=== PATIENT | female | born 1995 | race Caucasian/White ===

== ENCOUNTER 2020-01-08 20:14 | Emergency (ER) | payer SELFPAY ==
[2020-01-08] MEDS ORDERED: Ondansetron 4 MG Tab.DIS PO ONE (20:56)
--- NOTE | 2020-01-08 21:45 | EDM.PDOC ---
ED HPI GENERAL MEDICAL PROBLEM - General Chief Complaint: Abdominal Pain Stated Complaint: 7 WKS /ABDOMINAL PAIN Time Seen by Provider: 01/08/20 20:46 Source of Information: Reports: Patient History Limitations: Reports: No Limitations - History of Present Illness INITIAL COMMENTS - FREE TEXT/NARRATIVE: Patient is a 24-year-old female who presents to the emergency department with complaints of upper abdominal/right upper quadrant abdominal pain. Symptoms started approximately 2 hours prior to coming to the ER. She states they were getting ready to eat when the pain developed. She went to lie down, however when she stood up the pain intensified and she vomited x1. The pain waxes and wanes and had improved at the time of exam. She does feel slightly nauseous however. Of note, patient is 7 weeks , G2, P0 with a previous miscarriage. She denies any pelvic cramping or vaginal bleeding. Upper Abdomen Pain Score (Numeric/FACES): 8 - Related Data Allergies Allergy/AdvReac Type Severity Reaction Status Date / Time aspirin AdvReac Severe Vomiting Verified 01/08/20 20:25 Home Meds: Home Meds Pnv No.95/Ferrous Fum/Folic AC [ Caplet] 1 each PO DAILY 01/08/20 [History] Past Medical History HEENT History: Reports: None Cardiovascular History: Reports: None Respiratory History: Reports: None Gastrointestinal History: Reports: None Genitourinary History: Reports: None SPOT SPRAYER History: Reports: , Spontaneous Musculoskeletal History: Reports: None Neurological History: Reports: None Psychiatric History: Reports: None Endocrine/Metabolic History: Reports: None Hematologic History: Reports: None Immunologic History: Reports: None Oncologic (Cancer) History: Reports: None Dermatologic History: Reports: None - Infectious Disease History Infectious Disease History: Reports: None Social & Family History - Tobacco Use Smoking Status *Q: Never Smoker - Caffeine Use Caffeine Use: Reports: Soda - Recreational Drug Use Recreational Drug Use: No ED ROS GENERAL - Review of Systems Review Of Systems: See Below Constitutional: Reports: No Symptoms. Denies: Fever, Chills HEENT: Reports: No Symptoms Respiratory: Reports: No Symptoms Cardiovascular: Reports: No Symptoms Endocrine: Reports: No Symptoms GI/Abdominal: Reports: Abdominal Pain (RUQ), Nausea, Vomiting. Denies: Diarrhea : Reports: No Symptoms Musculoskeletal: Reports: No Symptoms Skin: Reports: No Symptoms Neurological: Reports: No Symptoms Psychiatric: Reports: No Symptoms Hematologic/Lymphatic: Reports: No Symptoms Immunologic: Reports: No Symptoms ED EXAM, GI/ABD - Physical Exam Exam: See Below Exam Limited By: No Limitations General Appearance: Alert, WD/WN, No Apparent Distress Respiratory/Chest: No Respiratory Distress, Lungs Clear, Normal Breath Sounds, No Accessory Muscle Use, Chest Non-Tender Cardiovascular: Normal Peripheral Pulses, Regular Rate, Rhythm, No Edema, No Gallop, No JVD, No Murmur, No Rub GI/Abdominal Exam: Normal Bowel Sounds, Soft, No Organomegaly, No Distention, No Abnormal Bruit, No Mass, Pelvis Stable, Tender (Right upper quadrant tenderness, positive Marrufo sign.) Neurological: Alert, Oriented, CN II-XII Intact, Normal Cognition, Normal Gait, Normal Reflexes, No Motor/Sensory Deficits Psychiatric: Normal Affect, Normal Mood Skin Exam: Warm, Dry, Intact, Normal Color, No Rash Course - Vital Signs Last Recorded V/S: Last Vital Signs Temp 97.6 F 01/08/20 20:21 Pulse 91 01/08/20 20:21 Resp 16 01/08/20 20:21 BP 133/92 H 01/08/20 20:21 Pulse Ox 99 01/08/20 20:21 - Orders/Labs/Meds Labs: Laboratory Tests 01/08/20 01/08/20 01/08/20 Range/Units 20:58 20:58 21:10 WBC 9.31 (3.98-10.04) K/mm3 RBC 4.34 (3.98-5.22) M/mm3 Hgb 12.9 (11.2-15.7) gm/dl Hct 38.5 (34.1-44.9) % MCV 88.7 (79.4-94.8) fl MCH 29.7 (25.6-32.2) pg MCHC 33.5 (32.2-35.5) g/dl RDW Std Deviation 41.1 (36.4-46.3) fL Plt Count 191 (182-369) K/mm3 MPV 9.8 (9.4-12.3) fl Neut % (Auto) 73.0 H (34.0-71.1) % Lymph % (Auto) 16.3 L (19.3-51.7) % Camp % (Auto) 8.8 (4.7-12.5) % Eos % (Auto) 1.6 (0.7-5.8) Baso % (Auto) 0.2 (0.1-1.2) % Neut # (Auto) 6.79 H (1.56-6.13) K/mm3 Lymph # (Auto) 1.52 (1.18-3.74) K/mm3 Camp # (Auto) 0.82 H (0.24-0.36) K/mm3 Eos # (Auto) 0.15 (0.04-0.36) K/mm3 Baso # (Auto) 0.02 (0.01-0.08) K/mm3 Sodium 136 (136-145) mEq/L Potassium 3.7 (3.5-5.1) mEq/L Chloride 102 (98-107) mEq/L Carbon Dioxide 24 (21-32) mEq/L Anion Gap 13.7 (5-15) BUN 10 (7-18) mg/dL Creatinine 0.7 (0.55-1.02) mg/dL Est Cr Clr Drug Dosing 132.85 mL/min Estimated GFR (MDRD) > 60 (>60) mL/min BUN/Creatinine Ratio 14.3 (14-18) Glucose 104 (74-106) mg/dL Calcium 9.1 (8.5-10.1) mg/dL Total Bilirubin 0.3 (0.2-1.0) mg/dL GGT 9 (5-55) U/L AST 14 L (15-37) U/L ALT 20 (14-59) U/L Alkaline Phosphatase 56 (46-116) U/L C-Reactive Protein 0.8 (<1.0) mg/dL Total Protein 7.2 (6.4-8.2) g/dl Albumin 3.6 (3.4-5.0) g/dl Globulin 3.6 gm/dL Albumin/Globulin Ratio 1.0 (1-2) Lipase 83 (73-393) U/L Urine Color Yellow (Yellow) Urine Appearance Clear (Clear) Urine pH 6.0 (5.0-8.0) Ur Specific [place] > or = 1.030 (1.005-1.030) Urine Protein Negative (Negative) Urine Glucose (UA) Negative (Negative) Urine Ketones Negative (Negative) Urine Occult Blood Negative (Negative) Urine Nitrite Negative (Negative) Urine Bilirubin Negative (Negative) Urine Urobilinogen 0.2 (0.2-1.0) Ur Leukocyte Esterase Negative (Negative) Urine RBC 0-5 (0-5) /hpf Urine WBC 0-5 (0-5) /hpf Ur Squamous Epith Cells 0-5 (0-5) /hpf Urine Bacteria Few (FEW) /hpf Urine Mucus Moderate H (FEW) /hpf Meds: Medications Discontinued Medications Generic Name Dose Route Start Last Admin Trade Name Freq PRN Reason Stop Dose Admin Ondansetron HCl 4 mg 01/08/20 20:56 01/08/20 21:01 Zofran Odt PO 01/08/20 20:57 4 mg ONETIME ONE Administration - Re-Assessments/Exams Free Text/Narrative Re-Assessment/Exam: 01/08/20 22:40 Patient's hematology and urinalysis was normal. Ultrasound of the right upper quadrant was overall unremarkable. There is no evidence of cholelithiasis or acute cholecystitis. No hydronephrosis identified in patient. Patient states that her pain is much better than when she arrived. She is also no longer nauseous. While the exact cause of her right upper quadrant pain is not clearly available, discussed the possibility of gastroenteritis. Prescription for Zofran was offered, however she declined. [place] and will be in town until Tuesday. Discussed that if she should have any worsening symptoms, she should not hesitate to return to the emergency department. Departure - Departure Time of Disposition: 22:41 Disposition: Home, Self-Care 01 Condition: Good Clinical Impression: Abdominal pain Qualifiers: Abdominal location: right upper quadrant Qualified Code(s): R10.11 - Right upper quadrant pain - Discharge Information *PRESCRIPTION DRUG MONITORING PROGRAM REVIEWED*: No *COPY OF PRESCRIPTION DRUG MONITORING REPORT IN PATIENT BRE: No Instructions: Abdominal Pain During Referrals: PCP,Not In Area [Primary Care Provider] - Forms: ED Department Discharge Additional Instructions: You were seen in the emergency department this evening for right upper quadrant abdominal pain with nausea and vomiting. While in ER, blood work, urinalysis, and a ultrasound of your gallbladder, and liver were completed. This was found to all be normal. There is no evidence that you have gallbladder disease. While the exact cause of your right upper quadrant abdominal pain is unclear, it is possible that you could have a viral gastroenteritis. Recommend that you rest and maintain a clear liquid diet for the next 24 to 40 hours. Then advance as tolerated. If you should experience any new or worsening symptoms of concern, please not hesitate to return to the emergency department. Sepsis Event Note (ED) - Evaluation Sepsis Screening Result: No Definite Risk
--- NOTE | 2020-01-09 14:15 | US ---
Limited right upper quadrant abdominal ultrasound: Multiple real-time images of the upper right abdomen were obtained. Comparison: No prior abdominal imaging is available. Liver contains no focal abnormality. Gallbladder contains no shadowing gallstones. No gallbladder wall thickening or biliary duct dilatation is seen. Right kidney shows no hydronephrosis or mass. Right kidney measures 12.2 cm in length. Pancreas appears within normal limits. Inferior vena cava is patent. Main portal vein shows normal hepatopedal flow. Impression: 1. No abnormality is identified on right upper quadrant abdominal ultrasound. Diagnostic code #1 This report was dictated in MDT I agree with preliminary report from [facility], finalized on 01/08/20, 11:24 PM Central Daylight Time
== END 2020-01-08 22:47 | disposition home or self-care (01) ==
LOC: JD.ED 20:14
DX: O99.89 Other specified diseases and conditions complicating pregnancy, childbirth and the puerperium (principal); R10.11 Right upper quadrant pain; Z3A.01 Less than 8 weeks gestation of pregnancy; Z88.6 Allergy status to analgesic agent; Z79.899 Other long term (current) drug therapy
CPT/HCPCS: 36415; 76705; 80053; 81001; 82977; 83690; 85025; 86140; 99284; A9270; 99283